=== PATIENT | female | born 1970 | race Caucasian/White ===

== ENCOUNTER 2016-12-31 11:15 | Emergency (ER) | payer SELFPAY ==
[~2016-12-31] VITALS: Ht 160 cm; Wt 59.4 kg
--- NOTE | 2016-12-31 11:20 | Emergency Room Report ---
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 Clinical Suspician of Infection? Mental Status: Sepsis Risk: Have you (or family members/close friends) recently traveled outside the [place]? If Yes, where/when: Have you had exposure to infectious disease within the past month? TB? Other? Specify: Source patient, RN notes reviewed Exam Limitations no limitations Comment Pt presents with a cough for the past 2 weeks and getting worse with pain in the left chst and left shoulder. Feels drained and worn out. Throat does not feel sore but it is red Cardiac Chest Pain Chest pain indicative of cardiac No ALLERGIES Coded Allergies: amoxicillin (SWELLING 12/31/16) Home Medications Reported Medications No Known Home Medications History Medical History General Angina: No CT: No Hypertension? No Hyperlipidemia? No CHF? No COPD? No Asthma? No Hernia? No CVA? No Seizures? No Diabetes? No UTI? No Stones? Yes GB Disease: No Hepatitis? No Cataracts? No Glaucoma? No TB? No Cancer? No Surgical Hx Previous Surgery?Y D & C HYSTERECTOMY Family History Family Hx Hypertension Yes Cancer Yes Social History Smoking Hx Packs/day < 1 Pack Alcohol Alcohol: Yes Review of Systems All Other Systems Reviewed and Negative Constitutional see HPI ENT see HPI. Respiratory see HPI Physical Exam Vital Signs Vital Signs Date Time Temp Pulse Resp B/P Pulse O2 O2 Flow FiO2 Ox Delivery Rate 12/31 1337 66 20 110/72 99 12/31 1311 72 20 110/65 100 12/31 1212 67 20 113/70 100 12/31 1115 98.0 67 18 121/83 100 General Appearance normal appearance, WD/WN, no apparent distress Ear, Nose, Throat pharyngeal erythema Respiratory Status No: respiratory distress. Lung Sounds bilateral: rhonchi. Cardiovascular normal exam, regular rate/rhythm Neurologic alert, granulator tender II-XII nml as tested, normal exam Medical Decision Making LABS/Meds/Orders Pt receiving controlled substance in ED? No Results/Orders Laboratory Tests 12/31/16 1213: Influenza Type A Ag NOT DETECTED, Influenza Type B Ag NOT DETECTED 12/31/16 1110: Sodium 142, Potassium 4.0, Chloride 105, Carbon Dioxide 30, BUN 18, Creatinine 0.7, Estimated Creat Clear 95, Estimated GFR (MDRD) 90, Glucose 126 H, Calcium 9.3, Total Bilirubin 0.2, AST 15, ALT 21, Alkaline Phosphatase 60, Creatine Kinase 80, CK-MB (CK-2) Rel Index 0.6, CK and CKMB Interp < 0.5, Troponin I < 0.02, Total Protein 7.5, Albumin 4.2, Globulin 3.3 H, Albumin/Globulin Ratio 1.3, WBC 7.5, RBC 3.99 L, Hgb 13.0, Hct 39.6, MCV 99.2 H, RDW 13.2, Plt Count 243, MPV 8.7, Gran % 68.7, Gran # 5.2, Lymphocytes % 25.4, Monocytes % 4.7, Eosinophils % 0.3, Basophils % 0.8, Lymphocytes # 1.9, Monocytes # 0.4, Eosinophils # 0.0, Basophils # 0.1, PUBS MCHC 32.9, MCH 32.6 H Current Medication Orders Sig/Katina Start time Last Medication Dose Route Stop Time Status Admin Sodium Chloride 10 ML PRN PRN 12/31 1130 AC IV 01/01 1116 Orders Procedure Date/time Status INFLUENZA A&B ANTIGENS 12/31 1149 Complete ELECTROCARDIOGRAM REQUEST 12/31 1116 Active IV SALINE LOCK 12/31 1116 Active CBC WITH AUTO DIFF 12/31 1116 Complete CARDIAC ENZYMES 12/31 1116 Complete CHEM 12 PROFILE 12/31 1116 Complete Departure Departure Time of Disposition 1355 Disposition DC Home or Self Care(routine) Clinical Impression Primary Impression: Bronchitis Secondary Impressions: Acute upper respiratory infection Condition STABLE Patient Instructions Acute Bronchitis, DI for Acute Bronchitis Additional Instructions Use medicines as directed. Return to the ED as needed or followup with PCP as needed. Discharge Counseling Counseled pt/family regarding diagnosis, test results, medications/RX, home care, follow up needs Prescriptions Current Visit Scripts Azithromycin (Zithromax) 250 MG PO DIRECTED #6 TAB Take 2 tabs first day and then 1 daily for 4 more days Guaifenesin/Dextromethorphan (Robitussin Cough-Chest Dm Liq) 237 ML PO DIRECTED #240 ML ED Critical Care Critical Care No If Critical Care minutes are documented, the time involved in the performance of seperately reportable procedures was not counted toward critical care time documented. I directly delivered medical care to this critically ill and/or injured patient. Timely evaluation and treatment was necessary to address the significant organ system(s) dysfunction present in this patient. at 2072
[2016-12-31 11:33] LABS: LYMPH # 1.9 K/mm3 (0.7-4.5); LYMPH % 25.4 % (10-50.0)
--- OUTSIDE RECORDS SUMMARY | 2016-12-31 11:50 | External Medical Summary Rpt | CCD ---
Author Author , REGIS Organization REGIS Address Unknown Phone [email or web address] Care Team Providers Care Training Executive Name Role Phone ALLRAN JR VANCE, ALLRAN Unavailable Unavailable JR VANCE BEINEKE CARLOS EDUARDO, BEINEKE Unavailable Unavailable CARLOS EDUARDO WATKINS ALL, WATKINS ALL Unavailable Unavailable TUYET RUSSELL, Unavailable Unavailable TUYET RUSSELL G, MAMADOU Spencer Unavailable Unavailable G MAMADOU HICKS, MAMADOU Unavailable Unavailable [facility] Unavailable Unavailable [facility], [facility] MYLA HENDRICKS MD, Unavailable Unavailable ELADIO DAMON MD Unavailable Unavailable [facility] Un[facility] Unavailable [facility], [facility], Unavailable Unavailable [facility] KEAGLE RIT, KEAGLE Unavailable Unavailable [facility] Unavailable Unavailable [facility], [facility] MENDOZA DANY, MENDOZA Unavailable Unavailable D[facility] Unavailable Unavailable [facility] MULBERRY ARACELI, Unavailable Unavailable [facility] ARACELI [facility] Un[facility] POCZATEK, OSCAR S, Unavailable Unavailable P[facility]ZATEK, OSCAR S PORNOY, JONATHAN A, Unavailable Unavailable PORNOY, JONATHAN A [id number], Unavailable Unavailable [id number] Purpose Continuity of Care Document - 10-13-2007 through 2016 Problems Code Diagnosis DOS Provider Status E049 NONTOXIC 04-03-2015 [place] [facility] UNSPECIFIED IMAGING ASS R5383 OTHER 04-03-2015 [place] [facility] K5900 CONSTIPATIO 01-26-2015 [facility] N PHYSICIANS UNSPECIFIED GROUP K625 HEMORRHAGE 01-26-2015 [facility] OF ANUS AND PHYSICIANS RECTUM GROUP R1032 LEFT LOWER 01-26-2015 [facility] QUADRANT PHYSICIANS PAIN GROUP Z1231 ENCOUNTER 01-23-2015 [place] [facility] MALIG IMAGING ASS NEOPLASM BREAST K648 OTHER 01-13-2015 [facility] HEMORRHOIDS PHYSICIANS GROUP R109 UNSPECIFIED 01-13-2015 [facility] ABDOMINAL PHYSICIANS PAIN GROUP N951 MENOPAUSAL 12-26-2014 MYLA Mireles AND FEMALE ELADIO AGRAWAL CLIMACTERIC STATES [id number] ENCOUNTER 12-26-2014 MYLA Mireles 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 ELADIO AGRAWAL GENERAL RTN W/O ABNORMAL FIND Z1212 ENCOUNTER 12-26-2014 MYLA Mireles SCREENING ELADIO AGRAWAL MALIGNANT NEOPLASM RECTUM H77138 HORMONE 12-26-2014 MYLA Mireles REPLACEMENT ELADIO AGRAWAL THERAPY 6272 SYMPTOMATIC 06-16-2014 MYLA HENDRICKS MD MENOPAUSAL/ FEMALE CLIMACTERIC STATES 4619 ACUTE 06-03-2014 [facility] UNSPECIFIED 89430 UNSPECIFIED 05-30-2014 [facility] VAGINITIS ASSOCIATES AND VULVOVAGINI TIS 21909 UNS PROLAPS 03-10-2014 MYLA Mireles VAG HYATT ELADIO AGRAWAL W/O MENTION UTERN PROLAPS 7242 LUMBAGO 01-31-2014 [facility] 38627 UNSPECIFIED 12-31-2013 [facility] PHYSICIANS CONSTIPATIO GROUP N 5781 BLOOD IN 12-31-2013 [facility] STOOL PHYSICIANS GROUP V1272 PERSONAL 12-31-2013 [facility] HISTORY OF PHYSICIANS COLONIC GROUP POLYPS 19433 ANOMALY OF 12-26-2013 [facility] MIDDLE ASSOCIATES EAR-EXCEPT OSSICLES 24145 UNSPECIFIED 12-18-2013 [facility] INFECTIVE ASSOCIATES OTITIS EXTERNA 3829 UNSPECIFIED 12-09-2013 [facility] OTITIS ASSOCIATES MEDIA 2113 BENIGN 11-19-2013 [facility] NEOPLASM OF PHYSICIANS COLON GROUP 2114 BENIGN 11-19-2013 [facility] NEOPLASM OF LLC RECTUM AND ANAL CANAL 5693 HEMORRHAGE 11-19-2013 [facility] OF RECTUM PHYSICIANS AND ANUS GROUP V7651 SPECIAL 11-19-2013 [facility] SCREENING LLC FOR MALIGNANT NEOPLASMS COLON V7612 OTHER 11-18-2013 [place] [facility] MAMMOGRAM IMAGING ASS V7231 ROUTINE 11-14-2013 MYLA Mireles GYNECOLOGIC ELADIO AGRAWAL AL EXAMINATION 6829 CELLULITIS 03-05-2009 SR[facility] CO AND ABSCESS PRIMARY OF CARE UNSPECIFIED CENTERINC SITE 6929 CONTACT 10-29-2007 [facility] CO DERMATITIS& PRIMARY OTHER CARE ECZEMA DUE CENTERINC UNSPEC CAUSE H81.11 Benign paroxysmal vertigo, right ear Medications Na ND Rx Da Fi Fi Am Da Di Ph RX Ph St me C No te ll ll ou ys ag ar # ys at rm s nt no ma ic us Or Da si cy ia de te s n re d LO 00 07 09 00 30 30 RI 62 PO Ac RA 78 -2 -1 .0 TE 08 CZ ti TA 15 9- 1- 93 AT ve DI 07 20 20 AI EK NE 70 08 08 D 1 PH PA 10 AR TT M I MG #3 S 92 TA 0 BL ET TX 00 08 09 00 30 10 RI 62 PO Ac ED 60 -0 -1 .0 TE 08 RN ti NI 35 9- 1- 00 92 OY ve SO 33 20 20 AI NE 92 08 08 D GE 1 PH OF 20 AR FR M EY MG #3 A 92 TA 0 BL ET Procedures Procedure DOS Code Location Performer Comment US SOFT 79304 [place] [facility] ALL TISSUE 6 MEDICAL HEAD & IMAGING NECK REAL ASS TIME IMGE DOC COMPUTER- 90840 [facility] DETECTION INC INC SCREENING MAMMOGRAP HY SCREENING G0202 [facility] MAMMOGRAP INC INC HY BOOKER INCL CAD WHEN PERFORMD SIGMOIDOS 67468 [facility] COPY FLX 5 [facility] DX INC INC W/COLLJ SPEC BR/WA IF PFRMD BLOOD 80800 MYLA HENDRICKS OCCULT 5 ELADIO BOLDEN PEROXIDAS E ACTV QUAL FECES 1-3 SPEC IADNA 80653 MYLA Mireles NEISSERIA 5 ELADIO HENDRICKS MD GONORRHOE AE DIRECT PROBE TQ CULTURE 14957 MYLA HENDRICKS CHLAMYDIA 5 ELADIO AGRAWAL KIMI ANY SOURCE URINLS 65457 MYLA HENDRICKS DIP 5 ELADIO BOLDEN STICK/TAB LET REAGNT NON-AUTO MICRSCPY SMR PRIM 63038 MYLA HENDRICKS SRC WET [address] [facility] NFCT AGT SMR PRIM 06142 MYLA HENDRICKS SRC WET [address] [facility] NFCT AGT RADEX 26024 [facility] SPINE 4 MEDICAL CARLOS EDUARDO LUMBOSACR IMAGING AL ASS MINIMUM 4 [place] [address] [facility] THYROID 4 [facility] STIMULATI INC INC NG HORMONE TSH BLOOD 77826 [facility] COUNT 4 [facility] COMPLETE INC INC AUTO&AUTO DIFRNTL WBC COLSC FLX 19371 [facility] W/RMVL 4 [facility] [place] [address] [facility] MENDO[facility] SURG 4 [facility] PATHOLOGY GROSS&GASTON ROSCOPIC EXAM COMPUTER- 58263 [facility] AIDED 4 [facility] DETECTION INC INC SCREENING MAMMOGRAP HY SCREENING G0202 [facility] 4 [facility] MAMMOGRAP INC INC HY BOOKER INCL CAD WHEN PERFORMD CULTURE 47575 MYLA HENDRICKS CHLAMYDIA 4 ELADIO AGRAWAL KIMI ANY SOURCE URINLS 69141 MYLA HENDRICKS DIP 4 ELADIO AGRAWAL KIMI STICK/TAB LET REAGNT NON-AUTO MICRSCPY IADNA 91761 MYLA HENDRICKS NEISSERIA 4 ELADIO BOLDEN GONORRHOE AE DIRECT PROBE TQ Encounters Encounter Start End Date Code Location Performer Type Date OFFICE 72015 [facility] OUTPATIEN 5 5 PHYSICIAN VANCE T VISIT S GROUP 10 MINUTES [facility] STEVEN - 5 5 [facility] OUT[facility]OD [facility] STEVEN - 5 5 [facility] 79207 [facility] 5 PHYSICIAN VANCE T VISIT S GROUP 25 MINUTES [facility] 64997 MYLA HENDRICKS PREVENTIV 5 5 ELADIO BOLDEN E MED EST PATIENT 40-64YRS OFFICE 33195 MYLA HENDRICKS OUTPATIEN 5 5 ELADIO AGRAWAL KIMI T VISIT 15 MINUTES OFFICE 72986 [facility] OUTPATIEN 5 5 CARE RIT T VISIT ASSOCIATE 15 S MINUTES OFFICE 71894 [facility]ILY MAMADOU OUTPATIEN 5 5 CARE FABIOLA T VISIT ASSOCIATE 25 S MINUTES OFFICE 67885 MYLA HENDRICKS OUTPATIEN 5 5 HARPEL MD KIMI T VISIT 15 MINUTES OFFICE 62625 MYLA HENDRICKS OUTPATIEN 5 5 ELADIO AGRAWAL KIMI T VISIT 25 MINUTES OFFICE 33694 FAMILY OUTPATIEN 4 4 CARE T VISIT ASSOCIATE 25 S MINUTES OFFICE 42521 FAMILY MAMADOU J OUTPATIEN 4 4 CARE G T VISIT ASSOCIATE 15 S MINUTES HOSPITAL STEVEN - 4 4 [facility] OUTPATIEN INC T OFFICE 08176 [facility] ALLRAN JR OUTPATIEN 4 4 PHYSICIAN VANCE T VISIT S GROUP 15 MINUTES OFFICE 00509 [facility] KE[facility]LE OUTPATIEN 4 4 CARE RIT T VISIT ASSOCIATE 15 S MINUTES OFFICE 80956 [facility]ILY MULBERRY OUTPATIEN 4 4 CARE ARACLEI T VISIT ASSOCIATE 15 S MINUTES OFFICE 01689 [facility] OUTPATIEN 4 4 CARE RIT T NEW 30 ASSOCIATE MINUTES S OFFICE 65339 MYLA HENDRICKS OUTPATIEN 4 4 ELADIO AGRAWAL KIMI T VISIT 15 MINUTES HOSPITAL STEVEN - 4 4 [facility] OUTPATIEN INC T HOSPITAL STEVEN - 4 4 [facility] OUTPATIEN INC T HOSPITAL STEVEN - 4 4 [facility] OUTPATIEN INC T INITIAL 16661 MYLA HENDRICKS PREVENTIV 4 4 ELADIO BOLDEN E MEDICINE NEW PATIENT 40-64YRS OFFICE 77109 [facility] OUTPATIEN 4 4 VANCE VANCE T NEW 45 MINUTES OFFICE 93039 SR[facility] BOB RUSSELL, OUTPATIEN 9 9 [facility] T VISIT CARE 10 CENTERINC MINUTES OFFICE 34348 SRIRAM BOB POCZAISAC, OUTPATIEN 8 8 PRIMARY OSCAR S T VISIT CARE 10 CENTERINC MINUTES OFFICE 37265 ASTON HERRMANN 8 8 PRIMARY OSCAR S T VISIT CARE [facility] 8 [facility] T MEDICAL CENTER EMERGENCY 99429 [facility] 8 8 W [facility] T VISIT MEDICAL LOW/MODER CENTER SEVERITY EMERGENCY 55138 VANDANA HAWK, 8 8 EMERGENCY [facility] SERVICES A T VISIT MODERATE ASSOCIATE SEVERITY S
--- OUTSIDE RECORDS SUMMARY | 2016-12-31 11:50 | External Medical Summary Rpt | CCD ---
Author Author , REGIS Organization REGIS Address Unknown Phone [email or web address] Care Team Providers Care Case Work Aide Name Role Phone ALLRAN JR VANCE, ALLRAN [...] Unavailable Unavailable INC, [facility], Unavailable Unavailable [facility] KEAGLE RIT, KEAGLE Unavailable Unavailable [facility] Unavailable Unavailable [facility], [facility] MENDOZA DANY, MENDOZA Unavailable Unavailable [facility] Unavailable Unavailable [facility] MULBERRY ARAECLI, Unavailable Unavailable MULBERR[facility] ARACELI [facility] Unavailable [facility] POCZATEK, OSCAR S, Unavailable Unavailable POCZATEK, OSCAR S PORNOY, JONATHAN A, Unavailable Unavailable PORNOY, JONATHAN A [id number], Unavailable Unavailable [id number] Purpose Continuity of Care Document - 10-13-2007 through 2016 Problems Code Diagnosis DOS Provider Status E049 NONTOXIC 04-03-2015 [place] [facility] UNSPECIFIED IMAGING ASS R5383 OTHER 04-03-2015 [place] [facility] K5900 CONSTIPATIO 01-26-2015 [facility] N PHYSICIANS UNSPECIFIED GROUP K625 HEMORRHAGE 01-26-2015 [facility] OF ANUS AND PHYSICIANS RECTUM GROUP R1032 LEFT LOWER 01-26-2015 [facility] QUADRANT PHYSICIANS PAIN GROUP Z1231 ENCOUNTER 01-23-2015 [place] SCREENING MEDICAL MAMMO MALIG IMAGING ASS NEOPLASM BREAST K648 OTHER 01-13-2015 [facility] HEMORRHOIDS PHYSICIANS GROUP R109 UNSPECIFIED 01-13-2015 [facility] ABDOMINAL PHYSICIANS PAIN GROUP N951 MENOPAUSAL 12-26-2014 MYLA Mireles AND FEMALE ELADIO AGRAWAL CLIMACTERIC STATES C71428 ENCOUNTER 12-26-2014 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 ELADIO AGRAWAL GENERAL RTN W/O ABNORMAL FIND Z1212 ENCOUNTER 12-26-2014 MYLA Mireles SCREENING ELADIO AGRAWAL MALIGNANT NEOPLASM RECTUM S97426 HORMONE 12-26-2014 MYLA Mireles REPLACEMENT ELADIO AGRAWAL THERAPY 6272 SYMPTOMATIC 06-16-2014 MYLA HENDRICKS MD MENOPAUSAL/ FEMALE CLIMACTERIC STATES 4619 ACUTE 06-03-2014 [facility] UNSPECIFIED 36678 UNSPECIFIED 05-30-2014 [facility] VAGINITIS ASSOCIATES AND VULVOVAGINI TIS 52321 UNS PROLAPS 03-10-2014 MYLA Mireles VAG HYATT ELADIO AGRAWAL W/O MENTION UTERN PROLAPS 7242 LUMBAGO 01-31-2014 [facility] 35341 UNSPECIFIED 12-31-2013 [facility] PHYSICIANS CONSTIPATIO GROUP N 5781 BLOOD IN 12-31-2013 [facility] STOOL PHYSICIANS GROUP V1272 PERSONAL 12-31-2013 [facility] HISTORY OF PHYSICIANS COLONIC GROUP POLYPS 23482 ANOMALY OF 12-26-2013 [facility] MIDDLE ASSOCIATES EAR-EXCEPT OSSICLES 70907 UNSPECIFIED 12-18-2013 [facility] INFECTIVE ASSOCIATES OTITIS EXTERNA 3829 UNSPECIFIED 12-09-2013 [facility] OTITIS ASSOCIATES MEDIA 2113 BENIGN 11-19-2013 [facility] NEOPLASM OF PHYSICIANS COLON GROUP 2114 BENIGN 11-19-2013 [facility] NEOPLASM OF LLC RECTUM AND ANAL CANAL 5693 HEMORRHAGE 11-19-2013 [facility] OF RECTUM PHYSICIANS AND ANUS GROUP V7651 SPECIAL 11-19-2013 [facility] SCREENING LLC FOR MALIGNANT NEOPLASMS COLON V7612 OTHER 11-18-2013 [place] SCREENING MEDICAL MAMMOGRAM IMAGING ASS V7231 ROUTINE [...] #3 S 92 TA 0 BL ET MN 00 08 09 00 30 10 RI 62 PO Ac ED 60 -0 -1 .0 TE 08 RN ti NI 35 9- 1- 00 92 OY ve SO 33 20 20 AI NE 92 08 08 D GE 1 PH OF 20 AR FR M EY MG #3 A 92 TA 0 BL ET Procedures Procedure DOS Code Location Performer Comment US SOFT 64806 [place] WATKINS ALL TISSUE 6 MEDICAL HEAD & IMAGING NECK REAL ASS TIME IMGE DOC COMPUTER- 96089 [facility] DETECTION INC INC SCREENING MAMMOGRAP HY SCREENING G0202 [facility] 5 [facility] MAMMOGRAP INC INC HY BOOKER INCL CAD WHEN PERFORMD SIGMOIDOS 48719 [facility] COPY FLX 5 [facility] DX INC INC W/COLLJ SPEC BR/WA IF PFRMD BLOOD 50881 MYLA HENDRICKS OCCULT 5 ELADIO BOLDEN PEROXIDAS E ACTV QUAL FECES 1-3 SPEC IADNA 33723 MYLA Mireles NEISSERIA 5 ELADIO HENDRICKS MD GONORRHOE AE DIRECT PROBE TQ CULTURE 21181 MYLA HENDRICKS CHLAMYDIA 5 ELADIO AGRAWAL KIMI ANY SOURCE URINLS 09032 MYLA HENDRICKS DIP 5 ELADIO BOLDEN STICK/TAB LET REAGNT NON-AUTO MICRSCPY SMR PRIM 13256 MYLA HENDRICKS SRC WET 5 ELADIO BOLDEN [facility] NFCT AGT SMR PRIM 58847 MYLA HENDRICKS SRC WET 5 ELADIO BOLDEN [facility] NFCT AGT RADEX 36554 [facility] SPINE 4 MEDICAL CARLOS EDUARDO LUMBOSACR IMAGING AL ASS MINIMUM 4 [place] [address] [facility] THYROID 4 [facility] STIMULATI INC INC NG HORMONE TSH BLOOD 53635 [facility] COUNT 4 [facility] COMPLETE INC INC AUTO&AUTO DIFRNTL WBC COLSC FLX 20420 [facility] W/RMVL 4 [facility] H[facility] INC [place] [address] [facility] SURG 4 [facility] PATHOLOGY GROSS&GASTON ROSCOPIC EXAM COMPUTER- 36220 [facility] AIDED 4 [facility] DETECTION INC INC SCREENING MAMMOGRAP HY SCREENING G0202 [facility] 4 [facility] MAMMOGRAP INC INC HY BOOKER INCL CAD WHEN PERFORMD CULTURE 94646 MYLA HENDRICKS CHLAMYDIA 4 ELADIO AGRAWAL KIMI ANY SOURCE URINLS 45875 MYLA HENDRICKS DIP 4 ELADIO ARGAWAL KIMI STICK/TAB LET REAGNT NON-AUTO MICRSCPY IADNA 09511 MYLA HENDRICKS NEISSERIA 4 ELADIO BOLDEN GONORRHOE AE DIRECT PROBE TQ Encounters Encounter Start End Date Code Location Performer Type Date OFFICE 51808 [facility] OUTPATIEN 5 5 PHYSICIAN VANCE T VISIT S GROUP 10 MINUTES [facility] STEVEN - 5 5 [facility] 5 [facility] 19532 [facility] OUT[facility] 5 5 PHYSICIAN VANCE T VISIT S GROUP 25 MINUTES [facility] 11536 MYLA HENDRICKS PREVENTIV 5 5 ELADIO BOLDEN E MED EST PATIENT 40-64YRS OFFICE 80735 MYLA HENDRICKS OUTPATIEN 5 5 ELADIO AGRAWAL KIMI T VISIT 15 MINUTES OFFICE 19445 [facility] OUTPATIEN 5 5 CARE RIT T VISIT ASSOCIATE 15 S MINUTES OFFICE 19732 [facility] MAMADOU OUTPATIEN 5 5 CARE FABIOLA T VISIT ASSOCIATE 25 S MINUTES OFFICE 86449 MYLA HENDRICKS OUTPATIEN 5 5 HARPEL MD KIMI T VISIT 15 MINUTES OFFICE 22256 MYLA HENDRICKS OUTPATIEN 5 5 ELADIO AGRAWAL KIMI T VISIT 25 MINUTES OFFICE 28344 [facility] OUTPATIEN 4 4 CARE T VISIT ASSOCIATE 25 S MINUTES OFFICE 73082 [facility] MAMADOU J OUTPATIEN 4 4 CARE G T VISIT ASSOCIATE 15 S MINUTES HOSPITAL STEVEN - 4 4 [facility] OUTPATIEN INC T OFFICE 15795 [facility] ALLRAN JR OUTPATIEN 4 4 PHYSICIAN VANCE T VISIT S GROUP 15 MINUTES OFFICE 28037 [facility] OUTPATIEN 4 4 CARE RIT T VISIT ASSOCIATE 15 S MINUTES OFFICE 27630 [facility] MULBERRY OUTPATIEN 4 4 CARE ARACELI T VISIT ASSOCIATE 15 S MINUTES OFFICE 48520 [facility] OUTPATIEN 4 4 CARE RIT T NEW 30 ASSOCIATE MINUTES S OFFICE 94580 MYLA HENDRICKS OUTPATIEN 4 4 ELADIO AGRAWAL KIMI T VISIT 15 MINUTES HOSPITAL STEVEN - 4 4 [facility] OUTPATIEN INC T [facility]PITAL STEVEN - 4 4 [facility] OUTPATIEN INC T [facility]OSPITAL STEVEN - 4 4 [facility] OUTPATIEN INC T INITIAL 46278 MYLA HENDRICKS PREVENTIV 4 4 ELADIO BOLDEN E MEDICINE NEW PATIENT 40-64YRS OFFICE 21412 [facility] JR OUTPATIEN 4 4 VANCE VANCE T NEW 45 MINUTES OFFICE 57794 SRIRAM BOB RUSSELL, OUTPATIEN 9 9 [facility] T VISIT CARE 10 CENTERINC MINUTES OFFICE 06655 SRIRAM BOB POCZAISAC, OUTPATIEN 8 8 PRIMARY OSCAR S T VISIT CARE 10 CENTERINC MINUTES OFFICE 00036 ASTON HERRMANN 8 8 PRIMARY OSCAR S T VISIT CARE 10 [facility] CAROLE - 8 8 [facility] T MEDICAL CENTER EMERGENCY 41887 [facility] 8 8 W [facility] T VISIT MEDICAL LOW/MODER CENTER SEVERITY EMERGENCY 95361 VANDANA HAWK, 8 8 EMERGENCY [facility] SERVICES A T VISIT MODERATE ASSOCIATE SEVERITY S
--- OUTSIDE RECORDS SUMMARY | 2016-12-31 11:51 | External Medical Summary Rpt | CCD ---
Demographics Preferred Language Khmer Marital Status Unknown Congregational Affiliation Unknown Race Unknown Ethnic Group Unknown Author Author , REGIS STACY Address Unknown Phone Immunization Unable to retrieve immunization data due to connection failure with Immunization Registry. Please try again later.
--- OUTSIDE RECORDS SUMMARY | 2016-12-31 11:51 | External Medical Summary Rpt | CCD ---
Demographics Preferred Language Armenian Marital Status Unknown Jain Affiliation Unknown Race Unknown Ethnic Group Unknown Author Author , REGIS STACY Address Unknown Phone Immunization Unable to retrieve immunization data due to connection failure with Immunization Registry. Please try again later.
--- OUTSIDE RECORDS SUMMARY | 2016-12-31 11:51 | External Medical Summary Rpt ---
Author Author REGIS Bar, REGIS [employer] Organization [employer] Address Unknown Phone Unavailable Results Auto Diff Observa Value Referen Units Interpr Notes Date tion ce etation Range Neutrop 64.6 No % No No Qasim 1 hils informa informa informa 2017 [#/volu tion in tion in tion in 8:37 AM me] in source source source Blood data data data by Automat ed count Lymphoc 24.7 No % No No Qasim 1 ytes informa informa informa 2017 [#/volu tion in tion in tion in 8:37 AM me] in source source source Blood data data data by Automat ed count Monocyt 6.7 No % No No Qasim 1 es informa informa informa 2017 [#/volu tion in tion in tion in 8:37 AM me] in source source source Blood data data data by Automat ed count Eos 2.9 No % No No Qasim 1 Percent informa informa informa 2017 tion in tion in tion in 8:37 AM source source source data data data Baso 1.1 No % No No Qasim 1 Percent informa informa informa 2017 tion in tion in tion in 8:37 AM source source source data data data Neut# 4.8 1.8 - x10(3)/ No No Qasim 1 7.7 mcL informa informa 2017 tion in tion in 8:37 AM source source data data Lymph# 1.9 0.6 - x10(3)/ No No Qasim 1 4.8 mcL informa informa 2017 tion in tion in 8:37 AM source source data data Washoe# 0.5 0.0 - x10(3)/ No No Qasim 1 1.3 mcL informa informa 2017 tion in tion in 8:37 AM source source data data Eos# 0.2 0.0 - x10(3)/ No No Qasim 1 0.5 mcL informa informa 2017 tion in tion in 8:37 AM source source data data Baso# 0.1 0.0 - x10(3)/ No No Aug 04 0.2 mcL informa informa 2017 tion in tion in 8:37 AM source source data data CBC Observa Value Referen Units Interpr Notes Date tion ce etation Range LEUKOCY 7.5 4.0 - x10(3)/ No No Aug 04 SARAHY 11.0 mcL informa informa 2017 tion in tion in 8:37 AM source source data data Erythro 3.94 3.80 - x10(6)/ No No Aug 04 cytes 5.10 mcL informa informa 2017 [#/volu tion in tion in 8:37 AM me] in source source Blood data data by Automat ed count Hemoglo 13.3 12.0 - gm/dL No No Aug 04 bin 15.6 informa informa 2016 [Mass/v tion in tion in 8:37 AM olume] source source in data data Blood Hematoc 39.3 35.7 - % No No Aug 04 rit 45.9 informa informa 2016 [Volume tion in tion in 8:37 AM source source Fractio data data n] of Blood by Automat ed count Erythro 99.7 82.5 - fL No No Aug 04 cyte 99.8 informa inform 2017 mean tion in tion in 8:37 AM corpusc source source ular data data volume [Entiti c volume] by Automat ed count Erythro 33.7 27.0 - pg No No Aug 04 cyte 34.3 informa informa 2016 mean tion in tion in 8:37 AM corpusc source source ular data data hemoglo bin [Entiti c mass] by Automat ed count Erythro 33.9 32.1 - gm/dL No No Aug 04 cyte 35.3 informa informa 2017 mean tion in tion in 8:37 AM corpusc source source ular data data hemoglo bin concent ration [Mass/v olume] by Automat ed count Erythro 13.0 11.5 - % No No Aug 04 cyte 15.0 informa informa 2017 distrib tion in tion in 8:37 AM ution source source width data data [Ratio] by Automat ed count Platele 214 144 - x10(3)/ No No Aug 04 ts 423 mcL informa informa 2017 [#/volu tion in tion in 8:37 AM me] in source source Blood data data by Automat ed count MPV 9.5 6.8 - fL No No Aug 04 10.8 informa informa 2017 tion in tion in 8:37 AM source source data data
--- OUTSIDE RECORDS SUMMARY | 2016-12-31 11:51 | External Medical Summary Rpt ---
[...] in 8:37 AM source source data data Sterling# 0.5 0.0 - x10(3)/ No No Qasim [...]
--- OUTSIDE RECORDS SUMMARY | 2016-12-31 11:51 | External Medical Summary Rpt | CCD ---
Author Author , REGIS STACY Address Unknown Phone [email or web address] Care Team Providers Care [employer] Service Team Member Name Role Phone ALLRAN JR VANCE, ALLRAN Unavailable Unavailable JR VANCE BEINEKE CARLOS EDUARDO, BEINEKE Unavailable Unavailable CARLOS EDUARDO WATKINS ALL, WATKINS ALL Unavailable Unavailable TUYET RUSSELL, Unavailable Unavailable YVONNE, TUYET Spencer G, MAMADOU Spencer Unavailable Unavailable G MAMADOU HICKS, MAMADOU Unavailable Unavailable [facility] Unavailable Unavailable [facility], [facility] MYLA HENDRICKS MD, Unavailable Unavailable ELADIO DAMON MD Unavailable Unavailable [facility] Un[facility] Un[facility], [facility], Unavailable Unavailable [facility] KEAGLE RIT, KEAGLE Unavailable Unavailable RIT [facility] Unavailable Unavailable [facility], [facility] MENDOZA DANY, MENDOZA Unavailable Unavailable DANY [facility] Unavailable [facility] MULBERRY ARACELI, Unavailable Unavailable MULBERRY ARACELI [facility] [...] [facility] K5900 CONSTIPATIO 01-26-2015 [facility] N PHYSICIANS UNSPECIFIED GROUP K625 HEMORRHAGE 01-26-2015 [facility] OF ANUS AND PHYSICIANS RECTUM GROUP R1032 LEFT LOWER 01-26-2015 [facility] QUADRANT PHYSICIANS PAIN GROUP Z1231 ENCOUNTER 01-23-2015 [place] SCREENING MEDICAL MAMMO MALIG IMAGING ASS NEOPLASM BREAST K648 OTHER 01-13-2015 [facility] HEMORRHOIDS PHYSICIANS GROUP R109 UNSPECIFIED 01-13-2015 [facility] ABDOMINAL PHYSICIANS PAIN GROUP N951 MENOPAUSAL 12-26-2014 MYLA Mireles AND FEMALE ELADIO AGRAWAL CLIMACTERIC STATES [id number] ENCOUNTER 12-26-2014 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 ELADIO AGRAWAL GENERAL RTN W/O ABNORMAL FIND Z1212 ENCOUNTER 12-26-2014 MYLA Mireles SCREENING ELADIO AGRAWAL MALIGNANT NEOPLASM RECTUM J36150 HORMONE 12-26-2014 MYLA Mireles REPLACEMENT ELADIO AGRAWAL THERAPY 6272 SYMPTOMATIC 06-16-2014 MYLA HENDRICKS MD MENOPAUSAL/ FEMALE CLIMACTERIC STATES 4619 ACUTE 06-03-2014 [facility] SINUSITIS, ASSOCIATES UNSPECIFIED 82076 UNSPECIFIED 05-30-2014 [facility] VAGINITIS ASSOCIATES AND VULVOVAGINI TIS 44733 UNS PROLAPS 03-10-2014 MYLA Mireles VAG HYATT ELADIO AGRAWAL W/O MENTION UTERN PROLAPS 7242 LUMBAGO 01-31-2014 [facility] 08814 UNSPECIFIED 12-31-2013 [facility] PHYSICIANS CONSTIPATIO GROUP N 5781 BLOOD IN 12-31-2013 [facility] STOOL PHYSICIANS GROUP V1272 PERSONAL 12-31-2013 [facility] HISTORY OF PHYSICIANS COLONIC GROUP POLYPS 12699 ANOMALY OF 12-26-2013 [facility] MIDDLE ASSOCIATES EAR-EXCEPT OSSICLES 65506 UNSPECIFIED 12-18-2013 [facility] INFECTIVE ASSOCIATES OTITIS EXTERNA 3829 UNSPECIFIED 12-09-2013 [facility] OTITIS ASSOCIATES MEDIA 2113 BENIGN 11-19-2013 [facility] NEOPLASM OF PHYSICIANS COLON GROUP 2114 BENIGN 11-19-2013 [facility] RECTUM AND ANAL CANAL 5693 HEMORRHAGE 11-19-2013 [facility] OF RECTUM PHYSICIANS AND ANUS GROUP [...] OTHER CARE [facility] UNSPEC CAUSE Medications Na ND Rx Da Fi Fi [...] .0 TE 08 CZ ti TA 15 93 AT ve DI 07 20 20 AI EK NE 70 08 08 D 1 PH PA 10 AR TT M I MG #3 S 92 TA 0 BL ET OK 00 08 09 00 30 10 RI 62 PO Ac ED 60 -0 -1 .0 TE 08 RN ti NI 35 9 92 OY ve SO 33 20 20 AI NE 92 08 08 D GE 1 PH OF 20 AR FR M EY MG #3 A 92 TA 0 BL ET Procedures Procedure DOS Code Location Performer Comment US SOFT 89914 [place] WATKINS ALL TISSUE 6 MEDICAL HEAD & IMAGING NECK REAL ASS TIME IMGE DOC COMPUTER- 67169 [facility] DETECTION INC INC SCREENING MAMMOGRAP HY SCREENING G0202 [facility] MAMMOGRAP INC INC HY BOOKER INCL CAD WHEN PERFORMD SIGMOIDOS 65547 [facility] COPY FLX 5 [facility] DX INC INC W/COLLJ SPEC BR/WA IF PFRMD IADNA 39558 MYLA Mireles NEISSERIA 5 ELADIO HENDRICKS MD GONORRHOE AE DIRECT PROBE TQ BLOOD 20794 MYLA HENDRICKS OCCULT 5 ELADIO BOLDEN PEROXIDAS E ACTV QUAL FECES 1-3 SPEC CULTURE 44632 MYLA HENDRICKS CHLAMYDIA 5 ELADIO BOLDEN ANY SOURCE URINLS 21226 MYLA HENDRICKS DIP 5 ELADIO BOLDEN STICK/TAB LET REAGNT NON-AUTO MICRSCPY SMR PRIM 98318 MYLA HENDRICKS SRC WET 5 ELADIO BOLDEN [facility] AGT SMR PRIM 08841 MYLA HENDRICKS SRC WET 5 ELADIO BOLDEN [facility] AGT RADEX 17567 [facility] SPINE 4 [facility] LUMBOSACR INC INC AL MINIMUM [address] [place] [address] [facility] THYROID 4 [facility] STIMULATI INC INC NG HORMONE TSH BLOOD 05681 [facility] COUNT 4 [facility] COMPLETE INC INC AUTO&[place] [address] [facility] SURG 4 LLC [facility] PATHOLOGY GROSS&GASTON ROSCOPIC EXAM COLSC FLX 05238 [facility] INDER CONTRERAS W/RMVL 4 PHYSICIAN VANCE OF TUMOR S GROUP POLYP LESION SNARE TQ COMPUTER- 22101 [place] [facility] A[facility]ED 4 MEDICAL CARLOS EDUARDO DETECTION IMAGING ASS SCREENING MAMMOGRAP HY SCREENING G0202 [facility] 4 MEDICAL CARLOS EDUARDO MAMMOGRAP IMAGING HY BOOKER ASS INCL CAD WHEN PERFORMD IADNA 62880 MYLA HENDRICKS NEISSERIA 4 ELADIO BOLDEN GONORRHOE AE DIRECT PROBE TQ CULTURE 85996 MYLA HENDRICKS CHLAMYDIA 4 ELADIO BOLDEN ANY SOURCE URINLS 87373 MYLA HENDRICKS DIP 4 ELADIO BOLDEN STICK/TAB LET REAGNT NON-AUTO MICRSCPY Encounters Encounter Start End Date Code Location Performer Type Date OFFICE 50753 [facility] INDER CONTRERAS OUTPATIEN 5 5 PHYSICIAN VANCE T VISIT S GROUP 10 MINUTES [facility]OSPITAL [facility] - 5 5 [facility] STEV[facility] 5 5 [facility] OUTPATIEN [facility] T OFFICE 46817 [facility] INDER CONTRERAS OUTPATIEN 5 5 PHYSICIAN VANCE T VISIT S GROUP 25 MINUTES [facility] 77857 MYLA HENDRICKS PREVENTIV 5 5 ELADIO BOLDEN E MED EST PATIENT 40-64YRS OFFICE 99564 MYLA HENDRICKS OUTPATIEN 5 5 ELADIO BOLDEN T VISIT 15 MINUTES OFFICE 30072 [facility] KEAGLE OUTPATIEN 5 5 CARE RIT T VISIT ASSOCIATE 15 S MINUTES OFFICE 96145 FAMILY MAMADOU OUTPATIEN 5 5 CARE FABIOLA T VISIT ASSOCIATE 25 S MINUTES OFFICE 50796 MYLA HENDRICKS OUTPATIEN 5 5 ELADIO BOLDEN T VISIT 15 MINUTES OFFICE 98387 MYLA HENDRICKS OUTPATIEN 5 5 ELADIO AGRAWAL KIMI T VISIT 25 MINUTES OFFICE 37952 FAMILY OUTPATIEN 4 4 CARE T VISIT ASSOCIATE 25 S MINUTES OFFICE 77907 FAMILY MAMADOU J OUTPATIEN 4 4 CARE G T VISIT ASSOCIATE 15 S MINUTES HOSPITAL STEVEN - 4 4 [facility] OUTPATIEN INC T OFFICE 92725 [facility] INDER CONTRERAS OUTPATIEN 4 4 PHYSICIAN VANCE T VISIT S GROUP 15 MINUTES OFFICE 38956 FAMILY KEAGLE OUTPATIEN 4 4 CARE RIT T VISIT ASSOCIATE 15 S MINUTES OFFICE 97031 FAMILY MULBERRY OUTPATIEN 4 4 CARE ARACELI T VISIT ASSOCIATE 15 S MINUTES OFFICE 69096 [facility] KEAGLE OUTPATIEN 4 4 CARE RIT T NEW 30 ASSOCIATE MINUTES [facility] STEVEN - 4 4 [facility] OUTPATIEN INC T OFFICE 26253 MYLA HENDRICKS OUTPATIEN 4 4 ELADIO AGRAWAL KIMI T VISIT 15 MINUTES [facility] STEVEN - 4 4 [facility] OUTPATIEN INC [facility] STEVEN - 4 4 [facility] OUTPATIEN INC T INITIAL 45848 MYLA HENDRICKS PREVENTIV 4 4 ELADIO AGRAWAL KIMI E MEDICINE NEW PATIENT 40-64YRS OFFICE 37338 INDER LOVING JR OUTPATIEN 4 4 VANCE VANCE T NEW 45 MINUTES OFFICE 41265 SRIR[facility] RUSSELL OUTPATIEN 9 9 PRIMARY TUYET T VISIT CARE 10 CENTERINC MINUTES OFFICE 29402 SRIRAM BLACK OUTPATIEN 8 8 PRIMARY OSCAR S T VISIT CARE 10 CENTERINC MINUTES OFFICE 77968 SRIRAM BLACK OUTPATIEN 8 8 PRIMARY OSCAR S T VISIT CARE 10 CENTERINC MINUTES HOSPITAL CAROLE - 8 8 [facility] T MEDICAL CENTER EMERGENCY 50053 VANDANA HAWK, 8 8 EMERGENCY [facility] A T VISIT MODERATE ASSOCIATE SEVERITY S EMERGENCY 71338 CAROLE 8 8 W [facility] T VISIT MEDICAL LOW/MODER CENTER SEVERITY
--- OUTSIDE RECORDS SUMMARY | 2016-12-31 11:51 | External Medical Summary Rpt | CCD ---
Author Author , REGIS STACY Address Unknown Phone [email or web address] Care Team Providers Care Roll Line Operator Name Role Phone ALLRAN JR VANCE, ALLRAN [...] Unavailable Unavailable INC, [facility], Unavailable Unavailable [facility] KEAGLE RIT, KEAGLE Unavailable Unavailable RIT [facility] Unavailable Unavailable IM[facility]ING [facility], [facility] MENDOZA DANY, MENDOZA Unavailable Unavailable DANY [facility] Unavailable [facility], [facility] MULBERRY ARACELI, Unavailable Unavailable MULBERRY ARACELI [facility] Un[facility] POCZATEK, OSCAR S, Unavailable Unavailable [employer]ZATEK, OSCAR S PORNOY, JONATHAN A, Unavailable Unavailable PORNOY, JONATHAN A [id number], Unavailable Unavailable [id number] Purpose Continuity of Care Document - 10-13-2007 through 2016 Problems Code Diagnosis DOS Provider Status E049 NONTOXIC 04-03-2015 [place] [facility] R5383 OTHER 04-03-2015 [place] [facility] K5900 CONSTIPATIO 01-26-2015 [facility] N PHYSICIANS UNSPECIFIED GROUP K625 HEMORRHAGE 01-26-2015 [facility] OF ANUS AND PHYSICIANS RECTUM GROUP R1032 LEFT LOWER 01-26-2015 [facility] QUADRANT PHYSICIANS PAIN GROUP Z1231 ENCOUNTER 01-23-2015 [place] [facility] M[facility] MALIG IMAGING ASS NEOPLASM BREAST K648 OTHER 01-13-2015 [facility] HEMORRHOIDS PHYSICIANS GROUP R109 UNSPECIFIED 01-13-2015 [facility] ABDOMINAL PHYSICIANS PAIN GROUP N951 MENOPAUSAL 12-26-2014 MYLA Mireles AND FEMALE ELADIO AGRAWAL CLIMACTERIC STATES 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 ELADIO AGRAWAL GENERAL RTN W/O ABNORMAL FIND Z1212 ENCOUNTER 12-26-2014 MYLA Mireles SCREENING ELADIO AGRAWAL MALIGNANT NEOPLASM RECTUM I58994 HORMONE 12-26-2014 MYLA Mireles REPLACEMENT ELADIO AGRAWAL THERAPY 6272 SYMPTOMATIC 06-16-2014 MYLA HENDRICKS MD MENOPAUSAL/ FEMALE CLIMACTERIC STATES 4619 ACUTE 06-03-2014 [facility] SINUSITIS, ASSOCIATES UNSPECIFIED 89418 UNSPECIFIED 05-30-2014 [facility] VAGINITIS ASSOCIATES AND VULVOVAGINI TIS 22734 UNS PROLAPS 03-10-2014 MYLA Mireles VAG HYATT ELADIO AGRAWAL W/O MENTION UTERN PROLAPS 7242 LUMBAGO 01-31-2014 [facility] 66164 UNSPECIFIED 12-31-2013 [facility] PHYSICIANS CONSTIPATIO GROUP N 5781 BLOOD IN 12-31-2013 [facility] STOOL PHYSICIANS GROUP V1272 PERSONAL 12-31-2013 [facility] HISTORY OF PHYSICIANS COLONIC GROUP POLYPS 80274 ANOMALY OF 12-26-2013 [facility] MIDDLE ASSOCIATES EAR-EXCEPT OSSICLES 94924 UNSPECIFIED 12-18-2013 [facility] INFECTIVE ASSOCIATES OTITIS EXTERNA 3829 UNSPECIFIED 12-09-2013 [facility] OTITIS ASSOCIATES MEDIA 2113 BENIGN 11-19-2013 [facility] NEOPLASM OF PHYSICIANS COLON GROUP 2114 BENIGN 11-19-2013 [facility] NEOP[facility]M OF LLC RECTUM AND ANAL CANAL 5693 HEMORRHAGE 11-19-2013 [facility] OF RECTUM PHYSICIANS AND ANUS GROUP V7651 SPECIAL 11-19-2013 [facility] SCREENING LLC FOR MALIGNANT NEOPLASMS COLON V7612 OTHER 11-18-2013 [place] [facility] MAMMOGRAM IMAGING ASS V7231 ROUTINE [...] #3 S 92 TA 0 BL ET CA 00 08 09 00 30 10 RI 62 PO Ac ED 60 -0 -1 .0 TE 08 RN ti NI 35 9 92 OY ve SO 33 20 20 AI NE 92 08 08 D GE 1 PH OF 20 AR FR M EY MG #3 A 92 TA 0 BL ET Procedures Procedure DOS Code Location Performer Comment US SOFT 10858 [place] [facility] ALL TISSUE 6 MEDICAL HEAD & IMAGING NECK REAL ASS TIME IMGE DOC COMPUTER- 49627 [facility] DETECTION INC INC SCREENING MAMMOGRAP HY SCREENING G0202 [facility] MAMMOGRAP INC INC HY BOOKER INCL CAD WHEN PERFORMD SIGMOIDOS 03346 [facility] COPY FLX 5 [facility] DX INC INC W/COLLJ SPEC BR/WA IF PFRMD IADNA 28800 MYLA Mireles NEISSERIA 5 ELADIO HENDRICKS MD GONORRHOE AE DIRECT PROBE TQ BLOOD 21959 MYLA HENDRICKS OCCULT 5 ELADIO BOLDEN PEROXIDAS E ACTV QUAL FECES 1-3 SPEC CULTURE 04949 MYLA HENDRICKS CHLAMYDIA 5 ELADIO BOLDEN ANY SOURCE URINLS 97410 MYLA HENDRICKS DIP 5 LEADIO BOLDEN STICK/TAB LET REAGNT NON-AUTO MICRSCPY SMR PRIM 67671 MYLA HENDRICKS SRC WET 5 ELADIO BOLDEN [facility] NFCT AGT SMR PRIM 58697 MYLA HENDRICKS SRC WET 5 ELADIO BOLDEN [facility] AGT RADEX 08811 [facility] SPINE 4 [facility] MEM [facility]OS[facility] LUMBOSACR INC INC AL MINIMUM [address] [place] [address] [facility] THYROID 4 [facility] STIMULATI INC INC NG HORMONE TSH BLOOD 36541 [facility] COUNT 4 [facility] COMPLETE INC INC AUTO&[place] [address] [facility] SURG 4 LLC [facility] PATHOLOGY GROSS&GASTON ROSCOPIC EXAM COLSC FLX 63099 [facility] INDER CONTRERAS W/RMVL 4 PHYSICIAN VANCE OF TUMOR S GROUP POLYP LESION SNARE TQ COMPUTER- 87097 [place] [facility] AIDED 4 MEDICAL CARLOS EDUARDO DETECTION IMAGING ASS SCREENING MAMMOGRAP HY SCREENING G0202 [facility] 4 MEDICAL CARLOS EDUARDO MAMMOGRAP IMAGING HY BOOKER ASS INCL CAD WHEN PERFORMD IADNA 55457 MYLA HENDRICKS NEISSERIA 4 ELADIO BOLDEN GONORRHOE AE DIRECT PROBE TQ CULTURE 93913 MYLA HENDRICKS CHLAMYDIA 4 ELADIO BOLDEN ANY SOURCE URINLS 43763 MYLA HENDRICKS DIP 4 ELADIO BOLDEN STICK/TAB LET REAGNT NON-AUTO MICRSCPY Encounters Encounter Start End Date Code Location Performer Type Date OFFICE 76343 [facility] INDER CONTRERAS OUTPATIEN 5 5 PHYSICIAN VANCE T VISIT S GROUP 10 MINUTES HOSPITAL STEVEN [facility] 5 5 [facility] OUTPATIEN [facility] STEVEN [facility] 5 5 [facility] OUTPATIEN [facility] T OFFICE 06383 [facility] INDER CONTRERAS OUTPATIEN 5 5 PHYSICIAN VANCE T VISIT S GROUP 25 MINUTES [facility] 46758 MYLA HENDRICKS PREVENTIV 5 5 ELADIO BOLDEN E MED EST PATIENT 40-64YRS OFFICE 34382 MYLA HENDRICKS OUTPATIEN 5 5 ELADIO BOLDEN T VISIT 15 MINUTES OFFICE 57025 [facility] KEAGLE OUTPATIEN 5 5 CARE RIT T VISIT ASSOCIATE 15 S MINUTES OFFICE 95120 FAMILY MAMADOU OUTPATIEN 5 5 CARE FABIOLA T VISIT ASSOCIATE 25 S MINUTES OFFICE 07692 MYLA HENDRICKS OUTPATIEN 5 5 ELADIO BOLDEN T VISIT 15 MINUTES OFFICE 73955 MYLA HENDRICKS OUTPATIEN 5 5 ELADIO AGRAWAL KIMI T VISIT 25 MINUTES OFFICE 99983 FAMILY OUTPATIEN 4 4 CARE T VISIT ASSOCIATE 25 S MINUTES OFFICE 78866 FAMILY MAMADOU J OUTPATIEN 4 4 CARE G T VISIT ASSOCIATE 15 S MINUTES HOSPITAL STEVEN - 4 4 [facility] OUTPATIEN INC T OFFICE 25745 [facility] INDER CONTRERAS OUTPATIEN 4 4 PHYSICIAN VANCE T VISIT S GROUP 15 MINUTES OFFICE 70072 FAMILY KEAGLE OUTPATIEN 4 4 CARE RIT T VISIT ASSOCIATE 15 S MINUTES OFFICE 84027 FAMILY MULBERRY OUTPATIEN 4 4 CARE ARACELI T VISIT ASSOCIATE 15 S MINUTES OFFICE 96900 FAMILY KEAGLE OUTPATIEN 4 4 CARE RIT T NEW 30 ASSOCIATE MINUTES [facility] STEVEN - 4 4 [facility] OUTPATIEN INC T OFFICE 22446 MYLA HENDRICKS OUTPATIEN 4 4 ELADIO AGRAWAL KIMI T VISIT 15 MINUTES [facility] STEVEN - 4 4 [facility] OUTPATIEN INC [facility] STEVEN - 4 4 [facility] OUTPATIEN INC T INITIAL 37202 MYLA HENDRICKS PREVENTIV 4 4 ELADIO AGRAWAL KIMI E MEDICINE NEW PATIENT 40-64YRS OFFICE 67500 INDER LOVING JR OUTPATIEN 4 4 VANCE VANCE T NEW 45 MINUTES OFFICE 64958 SRIRAM RUSSELL OUTPATIEN 9 9 PRIMARY TUYET T VISIT CARE 10 CENTERINC MINUTES OFFICE 40287 SRIRAM BLACK OUTPATIEN 8 8 PRIMARY OSCAR S T VISIT CARE 10 CENTERINC MINUTES OFFICE 01250 SRIRAM BLACK OUTPATIEN 8 8 PRIMARY OSCAR S T VISIT CARE 10 CENTERINC MINUTES HOSPITAL CAROLE - 8 8 [facility] EMERGENCY 91646 VANDANA HAWK, 8 8 EMERGENCY [facility] A T VISIT MODERATE ASSOCIATE SEVERITY S EMERGENCY 19611 CAROLE 8 8 W [facility] T VISIT MEDICAL LOW/MODER CENTER SEVERITY
[2016-12-31 11:56] LABS: BUN 18 mg/dL (7-18)
[2016-12-31 12:00] LABS: GFR (ESTIMATED) 90 ML/MIN (59-)
--- NOTE | 2016-12-31 12:43 | RADIOLOGY REPORT PS360 ---
CHEST(2 VIEWS-NOT PORTABLE) HISTORY: CHEST PAIN, COUGH ORDERING PHYSICIAN: Bob Bronson MD PATIENT AGE: 46 years COMPARISON: None available FINDINGS: The cardiomediastinal silhouette and pulmonary vascularity are within normal limits. The lungs are clear without infiltrates, suspicious nodules, or pleural effusions. No acute bony abnormalities. There is an old left sixth rib fracture laterally IMPRESSION: Negative chest, no acute finding
[2016-12-31] MEDS ORDERED: ZITHROMAX Z-PA250 M2 PO (13:57)
[2016-12-31] MEDS ORDERED: ROBITUSSIN COU237 M1 PO (13:59)
[2016-12-31 14:01] VITALS: BP 110/72
== END 2016-12-31 14:05 | disposition home or self-care (01) ==
LOC: ER 11:15
PROVIDERS: General Practice
DX: J20.9 Acute bronchitis, unspecified (principal); Z88.1 Allergy status to other antibiotic agents